=== PATIENT | female | born 1940 | race Caucasian/White ===

== ENCOUNTER → 2017-04-27 | Outpatient (CLI) | payer MEDICARE ==
[~2017-04-27] VITALS: Ht 162.6 cm; Wt 78.2 kg
[~2017-04-27] MED LIST: ALLERGY10 MG PO; C-LEXIN250 MG PO; TOPCARE ASPIRIN81 M1 PO; antibiotic
[2017-04-27 11:02] VITALS: BP 114/74
== END ==
LOC: AMSURD 10:09
DX: Z01.818 Encounter for other preprocedural examination (principal); M17.12 Unilateral primary osteoarthritis, left knee; J30.9 Allergic rhinitis, unspecified

== ENCOUNTER 2017-06-16 14:30 | Outpatient (RCR) | payer MEDICARE ==
[2017-04-27 11:02] VITALS: BP 114/74
== END 2017-06-16 15:00 | disposition home or self-care (01) ==
LOC: PT 14:30
DX: Z47.1 Aftercare following joint replacement surgery (principal); Z96.653 Presence of artificial knee joint, bilateral
CPT/HCPCS: G8978-GP; G8979-GP

== ENCOUNTER → 2019-03-10 | Outpatient (CLI) | payer MEDICARE ==
[2017-04-27 11:02] VITALS: BP 114/74
[2019-03-10 12:53] LABS: BASO # 0.1 (0.02-0.10); EOS # 0.4 (0.04-0.40); EOS % 5.1 % (1.0-5.0); HEMATOCRIT 43.3 % (37.0-47.0); LYMPH# 2.3 (1.50-4.00); MEAN CELL VOLUME 87 fl (78-100); MEAN CORPUSCULAR HEMOGLOBIN 28 pg (27-31); MEAN CORPUSCULAR HGB CONC 32 g/dL (33-37); MEAN PLATELET VOLUME 9.2 fl (7.4-10.4); MONO # 0.7 (0.20-0.80); NEU # 3.5 (1.40-6.50); PLATELET COUNT 311 K/mm3 (130-400); RED CELL DISTRIBUTION WIDTH 13.9 % (11.5-14.5); WHITE BLOOD COUNT 6.9 K/mm3 (4.8-10.8)
[2019-03-10 13:36] LABS: POTASSIUM 4.5 mmol/L (3.5-5.1)
[2019-03-10 13:37] LABS: ALBUMIN 4.4 g/dL (3.4-4.8)
[2019-03-10 13:38] LABS: CALCIUM 9.8 mg/dL (8.3-10.5)
[2019-03-10 13:39] LABS: TOTAL PROTEIN 7.9 g/dL (6.2-8.1)
[2019-03-10 13:41] LABS: TOTAL BILIRUBIN 0.5 mg/dL (0.2-1.2)
== END ==
LOC: LAB 12:32
PROVIDERS: Family Medicine
DX: Z00.00 Encounter for general adult medical examination without abnormal findings (principal); Z13.220 Encounter for screening for lipoid disorders; R53.83 Other fatigue

== ENCOUNTER → 2019-04-05 | Outpatient (CLI) | payer MEDICARE ==
[2017-04-27 11:02] VITALS: BP 114/74
== END ==
LOC: MAMMO 12:48
DX: Z12.31 Encounter for screening mammogram for malignant neoplasm of breast (principal)

== ENCOUNTER → 2020-07-24 | Outpatient (CLI) | payer MEDICARE ==
[2017-04-27 11:02] VITALS: BP 114/74
== END ==
LOC: MAMMO 15:04
DX: Z12.31 Encounter for screening mammogram for malignant neoplasm of breast (principal)

== ENCOUNTER → 2020-07-24 | Outpatient (CLI) | payer MEDICARE ==
[2017-04-27 11:02] VITALS: BP 114/74
== END ==
LOC: RAD 15:06 → MAMMO 16:00 → RAD 16:00
DX: Z13.820 Encounter for screening for osteoporosis (principal)

== ENCOUNTER → 2023-12-31 | Outpatient (CLI) | payer MEDICARE ==
[2024-02-16 13:09] LABS: ALBUMIN 4.3 g/dL (3.4-4.8); CALCIUM 9.7 mg/dL (8.3-10.5); TOTAL BILIRUBIN 0.5 mg/dL (0.2-1.2); TOTAL PROTEIN 6.8 g/dL (6.2-8.1)
[2024-02-16 13:11] LABS: BASO # 0.07 K/mm3 (0.02-0.10); EOS # 0.22 K/mm3 (0.04-0.40); EOS % 3.6 % (1.0-5.0); HEMATOCRIT 41.9 % (37.0-47.0); HEMOGLOBIN 13.7 g/dL (12.5-16.0); LYMPH# 2.01 K/mm3 (1.50-4.00); MEAN CELL VOLUME 87 fl (78-100); MEAN CORPUSCULAR HEMOGLOBIN 28 pg (27-31); MEAN CORPUSCULAR HGB CONC 33 g/dL (33-37); MEAN PLATELET VOLUME 10.4 fl (7.4-10.4); MONO # 0.52 K/mm3 (0.20-0.80); NEU # 3.26 K/mm3 (1.40-6.50); PLATELET COUNT 166 K/mm3 (130-400); RED BLOOD COUNT 4.84 M/mm3 (4.10-5.30); RED CELL DISTRIBUTION WIDTH 13.2 % (11.5-14.5); WHITE BLOOD COUNT 6.1 K/mm3 (4.8-10.8)
== END ==
LOC: LAB 08:00
PROVIDERS: Family Medicine
DX: Z11.59 Encounter for screening for other viral diseases (principal); I10 Essential (primary) hypertension; E78.5 Hyperlipidemia, unspecified; E55.9 Vitamin D deficiency, unspecified